=== PATIENT | male | born 1955 | race Hispanic/Latino ===

== ENCOUNTER 2018-02-19 15:13 | Inpatient (IN) | payer BC, OTHER ==
[2018-02-19] MEDS ORDERED: ASPIRIN PO ONE (15:59)
[2018-02-19] MEDS ORDERED: NACL 0.9% 1000 ML 1,000 ML IV ONE (15:59)
[2018-02-19 16:07] LABS: Basophils % (Auto) 0.4 % (0.0-1.8); Eosinophils # (Auto) 0.2 K/mm3 (0.0-0.4); Eosinophils % (Auto) 2.1 % (0.0-4.3); Lymphocytes # (Auto) 1.1 K/mm3 (1.2-5.4); Lymphocytes % (Auto) 15.8 % (13.4-35.0); Mean Corpuscular HGB Conc 36 % (32-34); Mean Corpuscular Hemoglobin 33 pg (28-32); Mean Corpuscular Volume 91 fl (84-94); Monocytes # (Auto) 0.6 K/mm3 (0.0-0.8); Monocytes % (Auto) 7.9 % (0.0-7.3); Platelet Count 171 K/mm3 (140-440); Red Blood Count 4.74 M/mm3 (3.65-5.03); Red Cell Distribution Width 13.7 % (13.2-15.2)
[2018-02-19 16:08] LABS: Hematocrit 43.2 % (35.5-45.6); Hemoglobin 15.7 gm/dl (11.8-15.2)
--- NOTE | 2018-02-19 16:16 | Consultation ---
History of Present Illness Consult date: 02/19/18 Requesting physician: RANDY MEEKS Consult reason: chest pain History of present illness: The pt is a 62 YO male with a past medical history significant for CAD s/p PCI of proximal right PDA in 03/2015, HTN, HLP, DM, mild COPD, former tobacco use ( quit 21 years ago). He is followed in our office by Dr. Jorge L Rodriguez. He presented with complaints of progressively worsening chest pain and SOB for 1-2 weeks and syncope this AM. He describes his chest pain as a midsternal, exertional pressure which radiates down his left arm and into his left neck and upper back. The pain is aggravated by exertion and alleviated by rest. The pain is associated with SOB, diaphoresis, nausea, and a few bouts of vomiting. This morning, he was sitting in a tractor at work when he felt dizzy for approx one minute and then lost consciousness. He awoke to his co-workers pulling him out of the tractor. On evaluation, he denies any current chest pain while at rest. He is currently c/o left arm and left hand pain, numbness and tingling. Last LHC done 05/2017 showed EF 50-55%, mid RCA lesion with previously placed stent widely patent, 10% stenosed, distal RCA lesion 40% stenosed, distal Cx lesion located at origin of AV branch immediately distal to origin of OM branch 50% stenosed. Echo done 05/2013 showed EF 55%, mild LVH, abnormal diastolic function. Lexiscan MPI stress test done 08/2016 was negative for ischemia, normal LV systolic performance. Past History Past Medical History: CAD, COPD, diabetes, hypertension, hyperlipidemia Social history: , lives with family, smoking (former). denies: alcohol abuse, prescription drug abuse Medications and Allergies Allergies Allergy/AdvReac Type Severity Reaction Status Date / Time codeine AdvReac Unknown Unverified 05/23/14 14:30 Home Medications Medication Instructions Recorded Confirmed Last Taken Type Atorvastatin [Lipitor] 10 mg PO QHS 05/23/14 05/23/14 05/22/14 22:00 History Clopidogrel Bisulfate [Plavix] 75 mg PO DAILY 05/23/14 05/23/14 05/23/14 10:00 History Fenofibric Acid (Choline) 135 mg PO QDAY 08/05/23/14 05/23/14 10:00 History [Trilipix] Glimepiride [Amaryl] 4 mg PO BID 05/23/14 05/23/14 05/23/14 10:00 History Metoprolol [Lopressor TAB] 25 mg PO BID 05/23/14 05/23/14 05/23/14 10:00 History Olmesartan/Amlodipin/Hcthiazid 1 each PO QDAY 05/23/14 05/23/14 05/23/14 10:00 History [Tribenzor 40-5-12.5 mg] Sitagliptin Phos/Metformin HCl 1 tab PO BID 05/23/14 05/23/14 05/23/14 10:00 History [Janumet XR 50-1,000 mg] Aspirin [Aspirin TAB] 325 mg PO QDAY #30 tablet 05/25/14 Unknown Rx Active Meds: Active Medications Sodium Chloride (Nacl 0.9% 1000 Ml) 1,000 mls @ 999 mls/hr IV ONCE ONE Stop: 02/19/18 16:59 Review of Systems Constitutional: no weight loss, no weight gain Ears, nose, mouth and throat: no ear pain, no nose pain, no sinus pressure, no sinus pain Cardiovascular: chest pain, syncope, lightheadedness, shortness of breath, dyspnea on exertion, high blood pressure, decreased exercise tolerance, no orthopnea, no palpitations, no rapid/irregular heart beat, no edema, no paroxysmal nocturnal dyspnea, no leg edema Respiratory: shortness of breath, dyspnea on exertion, no cough, no congestion, no wheezing, no pain on inspiration Gastrointestinal: nausea, vomiting, no abdominal pain, no diarrhea, no constipation, no change in bowel habits Genitourinary Male: no dysuria, no hematuria, no flank pain, no discharge, no urinary frequency, no urinary hesitancy Musculoskeletal: arm numbness/tingling (LUE) Integumentary: no rash, no pruritis, no redness, no sores, no wounds Neurological: syncope, no head injury, no paralysis, no parathesias, no seizures Psychiatric: no anxiety Endocrine: no cold intolerance, no heat intolerance Hematologic/Lymphatic: no easy bruising, no easy bleeding Allergic/Immunologic: no urticaria, no persistent infections Physical Examination Vital Signs Temp Pulse Resp BP Pulse Ox 97.4 F L 83 18 92/60 98 02/19/18 15:25 02/19/18 15:25 02/19/18 15:25 02/19/18 15:25 02/19/18 15:25 General appearance: no acute distress HEENT: Positive: PERRL, Normocephaly, Mucus Membranes Moist Neck: Positive: neck supple, trachea midline Cardiac: Positive: Reg Rate and Rhythm, S1/S2 Lungs: Positive: Decreased Breath Sounds Neuro: Positive: Grossly Intact, Cranial Nerve 2-12 Intact Abdomen: Positive: Soft. Negative: Tender Skin: Positive: Clear. Negative: Rash, Wound Musculoskeletal: No Fluid Collection, No Pain, Normal Range of Motion Extremities: Absent: edema Results 02/19/18 15:39 02/19/18 15:39 - Imaging and Cardiology Echo: report reviewed (05/2013 showed EF 55%, mild LVH, abnormal diastolic function. ) Cardiac cath: report reviewed ( 05/2017 showed EF 50-55%, mid RCA lesion with previously placed stent widely patent, 10% stenosed, distal RCA lesion 40% stenosed, distal Cx lesion located at origin of AV branch immediately distal to origin of OM branch 50% stenosed. ) EKG: report reviewed, image reviewed EKG interpretations - Telemetry EKG Rhythm: Sinus Rhythm - EKG Sinus rhythms and dysrhythmias: sinus rhythm Myocardial infarction: septal MS (old age or ind, anterior MS (old age or i Assessment and Plan Assessment: Unstable angina Syncope CAD s/p PCI H/o HTN - currently with borderline hypotension HLP DM Mild COPD H/o tobacco use - quit 21 years ago Plan: Await labwork. Initiate ASA 325 and lipitor 80mg. Cont home lopressor. Consider addition of nitrates if BPs allow. Initiate heparin gtt. Hold 4 hours prior to LHC in AM. Obtain echo. Repeat EKG in AM. Plan for coronary angiography in AM pending Tai negative for AMI and pt remains clinically stable overnight. Indications, potential risks and benefits of LHC reviewed with pt and pt's at bedside and they are agreeable to proceed. NPO after MN. The patient has been seen in conjunction with Dr. Etienne who agrees with the assessment and plan of care.
[2018-02-19] MEDS ORDERED: HEPARIN 10,000 UNITS/10 ML IV ONE ×2 (16:23→18:00)
[2018-02-19 16:27] LABS: BUN/Creatinine Ratio 19; Blood Urea Nitrogen 39 mg/dL (9-20); Calcium 9.7 mg/dL (8.4-10.2); Hemolysis Index 55
[2018-02-19] MEDS ORDERED: HumuLIN R IV ONE (16:46)
[2018-02-19] MEDS ORDERED: NORCO 5/325 PO ONE (16:51)
--- NOTE | 2018-02-19 16:54 | XRay Report ---
FINAL REPORT EXAM: XR CHEST 1V AP HISTORY: chest pain TECHNIQUE: upright single view chest PRIORS: None. FINDINGS: Cardiac and mediastinal contours are unremarkable. No focal pulmonary infiltrate is identified. No pleural fluid collection seen. Pulmonary vasculature is unremarkable. IMPRESSION: Negative single-view chest
--- NOTE | 2018-02-19 16:54 | Emergency Department Report ---
HPI - General Chief Complaint: Chest Pain Time Seen by Provider: 02/19/18 15:42 - HPI HPI: Room 8 The patient is a 62-year-old male presenting with a chief complaint of chest pain. The patient states for the past 2-3 days he has had intermittent left sided chest pain described as a dull discomfort. Patient states is also pain in left shoulder and today he had numbness in his left upper extremity. The patient states his chest pain is associated with shortness of breath, nausea/ vomiting and diaphoresis. The patient states it feels similar to his previous cardiac episodes which required cardiac stent placement. The patient states she 's also had intermittent blurred vision from both eyes for the past 1-2 days. Patient states now he only has intermittent blurred vision from the left eye. Location: [See above] Duration: [See above] Quality: [See above] Severity: [See above] Modifying factors: [see above] Context: [see above] Mode of transportation: [not driving] ED Past Medical Hx - Past Medical History Previous Medical History?: Yes Hx Hypertension: Yes Hx Heart Attack/AMI: Yes Hx Diabetes: Yes Hx COPD: Yes - Surgical History Past Surgical History?: Yes Hx Coronary Stent: Yes (x6) Hx Cholecystectomy: Yes - Family History Family history: no significant - Social History Smoking Status: Former Smoker (none 21 years) Substance Use Type: None (denies illicit drug use), Alcohol (occasional) - Medications Home Medications: Home Medications Medication Instructions Recorded Confirmed Last Taken Type Clopidogrel Bisulfate [Plavix] 75 mg PO DAILY 05/23/14 02/19/18 05/23/14 10:00 History Metoprolol [Lopressor TAB] 25 mg PO BID 05/23/14 02/19/18 05/23/14 10:00 History Aspirin [Adult Low Dose Aspirin EC] 81 mg PO DAILY 02/19/18 02/19/18 Unknown History Atorvastatin Calcium [Lipitor] 80 mg PO DAILY 02/19/18 02/19/18 Unknown History Dulaglutide [Trulicity] 1.5 mg SUB-Q QWEEK 02/19/18 02/19/18 02/14/18 History Folic Acid [Folvite] 1 mg PO QDAY 02/19/18 02/19/18 Unknown History Insulin Degludec [Tresiba 16 units SUB-Q QDAY 02/19/18 02/19/18 02/19/18 History Flextouch U-200] Metoclopramide [Reglan] 10 mg PO TIDWM 02/19/18 02/19/18 Unknown History Olmesartan/Amlodipin/Hcthiazid 1 each PO QDAY 02/19/18 02/19/18 Unknown History [Tribenzor 20-5-12.5 mg Tablet] Ranolazine [Ranexa] 1,000 mg PO BID 02/19/18 02/19/18 02/19/18 History Sitagliptin Phosphate [Januvia] 100 mg PO QDAY 02/19/18 02/19/18 Unknown History ED Review of Systems ROS: Stated complaint: CHEST PAIN, LEFT ARM HURTING, DIZZINESS, VOMITING Other details as noted in HPI Constitutional: diaphoresis Eyes: vision change ENT: denies: throat pain Respiratory: shortness of breath Cardiovascular: chest pain Gastrointestinal: nausea, vomiting. denies: abdominal pain Neurological: numbness Physical Exam - Physical Exam Vital Signs: Vital Signs 02/19/18 02/19/18 02/19/18 15:25 15:55 16:00 Temperature 97.4 F L Pulse Rate 83 80 78 Respiratory 18 13 16 Rate Blood Pressure 92/60 129/86 O2 Sat by Pulse 98 100 Oximetry Physical Exam: GENERAL: The patient is well-developed well-nourished male lying on stretcher not appearing to be in acute distress. [] HEENT: Normocephalic. Atraumatic. Extraocular motions are intact. Patient has moist mucous membranes. NECK: Supple. Trachea midline CHEST/LUNGS: Clear to auscultation. There is no respiratory distress noted. HEART/CARDIOVASCULAR: Regular. There is no tachycardia. There is no gallop rub or murmur. 2+ radial pulses bilaterally ABDOMEN: Abdomen is soft, nontender. Patient has normal bowel sounds. There is no abdominal distention. SKIN: There is no rash. There is no edema. There is no diaphoresis. NEURO: The patient is awake, alert, and oriented. The patient is cooperative. The patient has no focal neurologic deficits. The patient has normal speech. Cranial nerves II through XII grossly intact MUSCULOSKELETAL: There is no evidence of acute injury. ED Course Vital Signs 02/19/18 02/19/18 02/19/18 15:25 15:55 16:00 Temperature 97.4 F L Pulse Rate 83 80 78 Respiratory 18 13 16 Rate Blood Pressure 92/60 129/86 O2 Sat by Pulse 98 100 Oximetry ED Medical Decision Making - Lab Data Result diagrams: 02/19/18 15:39 02/19/18 15:39 Laboratory Tests 02/19/18 02/19/18 02/19/18 15:39 15:39 15:39 WBC 7.0 RBC 4.74 Hgb 15.7 H Hct 43.2 MCV 91 MCH 33 H MCHC 36 H RDW 13.7 Plt Count 171 Lymph % (Auto) 15.8 [place] % (Auto) 7.9 H Eos % (Auto) 2.1 Baso % (Auto) 0.4 Lymph # 1.1 L [place] # 0.6 Eos # 0.2 Baso # 0.0 Seg Neutrophils % 73.8 H Seg Neutrophils # 5.2 VBG pH 7.372 Sodium 123 L Potassium 4.9 Chloride 85.8 L Carbon Dioxide 22 Anion Gap 20 BUN 39 H Creatinine 2.1 H Estimated GFR 32 BUN/Creatinine Ratio 19 Glucose 553 H* Calcium 9.7 Troponin T < 0.010 - EKG Data -: EKG Interpreted by Me EKG shows normal: sinus rhythm Rate: normal - EKG Data When compared to previous EKG there are: previous EKG unavailable Interpretation: other (no ischemic changes seen) - Radiology Data Radiology results: image reviewed (chest x-ray) interpreted by me: Chest x-ray-no focal infiltrates, no pneumothorax - Differential Diagnosis ACS, GERD, pericarditis Critical care attestation.: If time is entered above; I have spent that time in minutes in the direct care of this critically ill patient, excluding procedure time. ED Disposition Clinical Impression: Chest pain, Acute renal insufficiency Disposition: OP ADMIT IP TO THIS HOSP Is pt being admited?: Yes Does the pt Need Aspirin: No Condition: Fair Instructions: Chest Pain (ED) Time of Disposition: 16:59 (Hospitalist notified (Dr Alvarado))
--- NOTE | 2018-02-19 16:57 | History and Physical Report ---
History of Present Illness Chief complaint: My chest hurts History of present illness: 62 YO Male with CAD S/P PCI, HTN, HLD, DM, COPD, presents to ED for evaluation. Pt states that he has experienced pain in his chest for the past 1 week, with worsening symptoms over the past 3 days. Pt states that pain is 7/10, midsternal , worse with exertion, improved with rest, radiates to Left arm,neck, and upper back. Pain is associated with diaphoresis,nausea and multiple episodes of vomiting. Pt also acknwledges an episode of syncope while at work. Pt states that he lost consciousness while sitting on a tractor at work, and awoke to his co-workers pulling him out of the tractor. Pt seen and evaluated in ED and found to have ACS. Cardiology consulted in ED. Pt started on a heparin drip and admitted to telemetry. Past History Past Medical History: CAD, COPD, diabetes, hypertension, hyperlipidemia Social history: , lives with family, smoking (former). denies: alcohol abuse, prescription drug abuse Family history: CAD, hypertension Medications and Allergies Allergies Allergy/AdvReac Type Severity Reaction Status Date / Time codeine AdvReac Unknown Verified 02/19/18 17:36 Home Medications Medication Instructions Recorded Confirmed Last Taken Type Clopidogrel Bisulfate [Plavix] 75 mg PO DAILY 05/23/14 02/19/18 05/23/14 10:00 History Metoprolol [Lopressor TAB] 25 mg PO BID 05/23/14 02/19/18 05/23/14 10:00 History Aspirin [Adult Low Dose Aspirin EC] 81 mg PO DAILY 02/19/18 02/19/18 Unknown History Atorvastatin Calcium [Lipitor] 80 mg PO DAILY 02/19/18 02/19/18 Unknown History Dulaglutide [Trulicity] 1.5 mg SUB-Q QWEEK 02/19/18 02/19/18 02/14/18 History Folic Acid [Folvite] 1 mg PO QDAY 02/19/18 02/19/18 Unknown History Insulin Degludec [Tresiba 16 units SUB-Q QDAY 02/19/18 02/19/18 02/19/18 History Flextouch U-200] Metoclopramide [Reglan] 10 mg PO TIDWM 02/19/18 02/19/18 Unknown History Olmesartan/Amlodipin/Hcthiazid 1 each PO QDAY 02/19/18 02/19/18 Unknown History [Tribenzor 20-5-12.5 mg Tablet] Ranolazine [Ranexa] 1,000 mg PO BID 02/19/18 02/19/18 02/19/18 History Sitagliptin Phosphate [Januvia] 100 mg PO QDAY 02/19/18 02/19/18 Unknown History Active Meds: Active Medications Aspirin (Aspirin) 325 mg PO QDAY DIVYA Atorvastatin Calcium (Lipitor) 80 mg PO QHS DIVYA Sodium Chloride (Nacl 0.9% 1000 Ml) 1,000 mls @ 999 mls/hr IV ONCE ONE Stop: 02/19/18 16:59 Last Admin: 02/19/18 16:25 Dose: 999 mls/hr Sodium Chloride (Nacl 0.9% 500 Ml) 500 mls @ 50 mls/hr IV DIRECT DIVYA Stop: 02/20/18 02:59 Heparin Sodium/Sodium Chloride (Heparin/ 0.45% Nacl-25,000 Unit/500 Ml) 25,000 unit in 500 mls @ 20 mls/hr IV TITRATE DIVYA; Protocol Stop: 02/20/18 04:00 Metoprolol Tartrate (Lopressor) 25 mg PO BID [facility] Review of Systems Constitutional: no weight loss, no weight gain, no fever, no chills Ears, nose, mouth and throat: no ear pain, no ear discharge, no tinnitis, no decreased hearing, no nose pain, no nasal congestion, no nasal discharge Cardiovascular: chest pain, syncope, shortness of breath, no orthopnea, no palpitations Respiratory: no cough, no cough with sputum, no excessive sputum, no hemoptysis Gastrointestinal: nausea, vomiting, no diarrhea, no constipation, no change in bowel habits, no hematemesis Genitourinary Male: no hematuria, no flank pain, no discharge, no urinary frequency, no urinary hesitancy Rectal: no pain, no incontinence, no bleeding Musculoskeletal: no neck stiffness, no neck pain, no shooting arm pain, no arm numbness/tingling, no low back pain, no shooting leg pain, no leg numbness/ tingling Integumentary: no rash, no pruritis, no redness, no sores, no wounds Neurological: no head injury, no transient paralysis, no paralysis, no weakness , no parathesias, no numbness, no tingling Psychiatric: no anxiety, no memory loss, no change in sleep habits, no sleep disturbances, no insomnia, no hypersomnia, no change in appetite, no change in libido Endocrine: no cold intolerance, no heat intolerance, no polyphagia, no excessive thirst, no polydipsia, no polyuria, no nocturia, no excessive sweating , no flushing Hematologic/Lymphatic: no easy bruising, no easy bleeding, no lymphadenopathy, no lymphedema Allergic/Immunologic: no urticaria, no allergic rhinitis, no wheezing, no persistent infections, no anaphylaxis, no angioedema Exam - Constitutional Vitals: Temp Pulse Resp BP Pulse Ox 97.4 F L 78 16 129/86 100 02/19/18 15:25 02/19/18 16:00 02/19/18 16:00 02/19/18 16:00 02/19/18 16:00 General appearance: Present: mild distress - EENT Eyes: Present: PERRL ENT: hearing intact, clear oral mucosa - Neck Neck: Present: supple, normal ROM - Respiratory Respiratory effort: normal Respiratory: bilateral: CTA - Cardiovascular Heart Sounds: Present: S1 & S2. Absent: rub, click - Extremities Extremities: pulses symmetrical, No edema Peripheral Pulses: within normal limits - Abdominal General gastrointestinal: Present: soft, non-tender, non-distended, normal bowel sounds Male genitourinary: Present: normal - Integumentary Integumentary: Present: clear, warm, dry - Musculoskeletal Musculoskeletal: gait normal, strength equal bilaterally - Psychiatric Psychiatric: appropriate mood/affect, intact judgment & insight - Neurologic Neurologic: CNII-XII intact, moves all extremities Results - Labs CBC & Chem 7: 02/19/18 15:39 02/19/18 15:39 Labs: Abnormal lab results 02/19/18 02/19/18 Range/Units 15:39 15:39 Hgb 15.7 H (11.8-15.2) gm/dl MCH 33 H (28-32) pg MCHC 36 H (32-34) % [place] % (Auto) 7.9 H (0.0-7.3) % Lymph # 1.1 L (1.2-5.4) K/mm3 Seg Neutrophils % 73.8 H (40.0-70.0) % Sodium 123 L (137-145) mmol/L Chloride 85.8 L (98-107) mmol/L BUN 39 H (9-20) mg/dL Creatinine 2.1 H (0.8-1.5) mg/dL Glucose 553 H* (75-100) mg/dL Assessment and Plan - Patient Problems (1) ACS (acute coronary syndrome) Current Visit: Yes Status: Acute Plan to address problem: Admit to telemetry, Serial cardiac enzymes, ekg, Heparin Drip, cardiology consulted in ED. (2) ARF (acute renal failure) Current Visit: Yes Status: Acute Qualifiers: Acute renal failure type: with acute tubular necrosis Qualified Code(s): N17.0 - Acute kidney failure with tubular necrosis Plan to address problem: IVF resuscitation, monitor uop q shift, monitor serum creatnine, (3) CAD (coronary artery disease) Current Visit: No Status: Chronic Qualifiers: Associated angina: with unstable angina Plan to address problem: Low cholesterol diet, antiplatelet therapy, risk factor reduction (4) Diabetes Current Visit: No Status: Chronic Plan to address problem: ADA diet, insulin, accu check (5) HLD (hyperlipidemia) Current Visit: No Status: Chronic Qualifiers: Hyperlipidemia type: mixed hyperlipidemia Qualified Code(s): E78.2 - Mixed hyperlipidemia Plan to address problem: statin therapy, low cholesterol diet (6) HTN (hypertension) Current Visit: No Status: Chronic Qualifiers: Hypertension type: essential hypertension Qualified Code(s): I10 - Essential (primary) hypertension Plan to address problem: Monitor bp q shift, resume prehospital medication. (7) DVT prophylaxis Current Visit: Yes Status: Acute Plan to address problem: scd to ble while in bed
[2018-02-19 16:58] LABS: INR 1.05 (0.87-1.13)
[2018-02-19 16:59] LABS: Partial Thromboplastin Time 25.8 Sec. (24.2-36.6)
[2018-02-19] MEDS ORDERED: NITROSTAT SL PRN (16:59)
[2018-02-19] MEDS ORDERED: ZOFRAN IV PRN (16:59)
[2018-02-19] MEDS ORDERED: PROVENTIL IH PRN (16:59)
[2018-02-19] MEDS ORDERED: MORPHINE IV PRN (16:59)
[2018-02-19] MEDS ORDERED: TYLENOL PO PRN (16:59)
[2018-02-19] MEDS ORDERED: SODIUM CHLORIDE FLUSH SYRINGE 10 ML IV PRN ×2 (16:59)
[2018-02-19] MEDS ORDERED: NACL 0.9% 500 ML 500 ML IV SCH (17:00)
[2018-02-19] MEDS ORDERED: HEPARIN/ 0.45% NACL-25,000 UNIT/500 ML 25,000 UNIT/500 ML BAG IV SCH (17:00)
[2018-02-19] MEDS ORDERED: D50W (25GM) Syringe IV PRN (17:04)
[2018-02-19] MEDS ORDERED: BABY ASPIRIN PO STA (17:06)
[2018-02-19] MEDS ORDERED: NACL 0.45% 1000 ML 1,000 ML IV SCH (18:00)
[2018-02-19] MEDS: NACL 0.9% 1000 ML 1,000 ML IV SCH (18:40)
[2018-02-19] MEDS: LOPRESSOR PO SCH (22:00)
[2018-02-19] MEDS ORDERED: PEPCID PO SCH (22:00)
[2018-02-19] MEDS: HumaLOG SUB-Q SCH (23:33)
[2018-02-19] MEDS: PEPCID PO SCH (23:49)
[2018-02-19] MEDS: SODIUM CHLORIDE FLUSH SYRINGE 10 ML IV SCH (23:55)
[2018-02-20] MEDS: HumaLOG SUB-Q SCH ×4 (00:55→18:01)
[2018-02-20 02:07] LABS: Bilirubin,Urine NEG (Negative); Blood,Urine NEG (Negative); Color,Urine Yellow (Yellow); Hyaline Casts,Urine 1 /LPF; Protein,Urine <15 mg/dL mg/dL (Negative); Urobilinogen,Urine < 2.0 mg/dL (<2.0); WBC,Urine < 1.0 /HPF (0.0-6.0)
[2018-02-20 05:39] LABS: Calcium 8.6 mg/dL (8.4-10.2)
[2018-02-20 05:51] LABS: INR 1.11 (0.87-1.13)
[2018-02-20] MEDS ORDERED: NACL 0.9% 500 ML 500 ML IV ONE (06:00)
[2018-02-20 06:08] LABS: Partial Thromboplastin Time 66.6 Sec. (24.2-36.6)
[2018-02-20] MEDS: REGLAN PO SCH ×3 (09:15→18:01)
[2018-02-20] MEDS: NACL 0.9% 1000 ML 1,000 ML IV SCH ×3 (09:48→14:22)
[2018-02-20] MEDS: SODIUM CHLORIDE FLUSH SYRINGE 10 ML IV SCH ×2 (09:49→21:43)
[2018-02-20] MEDS ORDERED: INSULIN DEGLUDEC 16 UNIT SUB-Q SCH (10:00)
[2018-02-20] MEDS ORDERED: AMLODIPIN PO SCH (10:00)
[2018-02-20] MEDS ORDERED: HCTHIAZID PO SCH (10:00)
[2018-02-20] MEDS ORDERED: COZAAR PO SCH (10:00)
[2018-02-20] MEDS ORDERED: OLMESARTAN PO SCH (10:00)
--- NOTE | 2018-02-20 10:41 | Progress Note ---
Assessment and Plan Assessment: Chest pain - currently resolved Syncope CAD s/p PCI H/o HTN - currently with borderline hypotension HLP DM with hyperglycemia Dehydration ITZEL Hyponatremia Hypokalemia Mild COPD H/o tobacco use - quit 21 years ago Plan: Renal insufficiency precludes coronary angiography at this time. Will continue with medical management given current resolution of chest pain, Tai negative for AMI, ECG with NAF. D/c heparin gtt and resume home plavix. Cont ASA, lipitor, lopressor. Initiate SQ heparin for DVT prophylaxis. Obtain echo. IVF per primary and monitor renal indices closely. Hold home losartan. Pt for renal US today. Consider nephrology consultation if renal indices worsen. Replete K+. Assessment and plan reviewed with pt and pt's family at bedside. The patient has been seen in conjunction with Dr. Jorge L Rodriguez who agrees with the assessment and plan of care. Subjective Date of service: 02/20/18 Principal diagnosis: cp Interval history: pt resting comfortably in bed, reports resolution of chest pain, still c/o left arm pain, numbness and tingling. family at bedside. Objective Last Vital Signs Temp 97.5 F L 02/20/18 07:55 Pulse 78 02/20/18 07:55 Resp 20 02/20/18 07:55 BP 121/80 02/20/18 07:55 Pulse Ox 99 02/20/18 07:55 - Physical Examination General: No Apparent Distress HEENT: Positive: PERRL, Normocephaly, Mucus Membranes Moist Neck: Positive: neck supple, trachea midline Cardiac: Positive: Reg Rate and Rhythm, S1/S2 Lungs: Positive: clear to auscultation Neuro: Positive: Grossly Intact, Cranial Nerve 2-12 Intact Abdomen: Positive: Soft. Negative: Tender Skin: Positive: Clear. Negative: Rash, Wound Musculoskeletal: No Fluid Collection, No Pain, Normal Range of Motion Extremities: Absent: edema - Labs and Meds Coagulation 02/19/18 02/20/18 Range/Units 16:30 04:50 PT 14.3 14.9 (12.2-14.9) Sec. INR 1.05 1.11 (0.87-1.13) APTT 25.8 66.6 H* (24.2-36.6) Sec. CBC 02/19/18 Range/Units 15:39 WBC 7.0 (4.5-11.0) K/mm3 RBC 4.74 (3.65-5.03) M/mm3 Hgb 15.7 H (11.8-15.2) gm/dl Hct 43.2 (35.5-45.6) % Plt Count 171 (140-440) K/mm3 Lymph # 1.1 L (1.2-5.4) K/mm3 [place] # 0.6 (0.0-0.8) K/mm3 Eos # 0.2 (0.0-0.4) K/mm3 Baso # 0.0 (0.0-0.1) K/mm3 Comprehensive Metabolic Panel 02/19/18 02/20/18 Range/Units 15:39 04:50 Sodium 123 L 136 L D (137-145) mmol/L Potassium 4.9 3.5 L D (3.6-5.0) mmol/L Chloride 85.8 L 98.7 (98-107) mmol/L Carbon Dioxide 22 22 (22-30) mmol/L BUN 39 H 28 H (9-20) mg/dL Creatinine 2.1 H 1.8 H (0.8-1.5) mg/dL Glucose 553 H* 143 H (75-100) mg/dL Calcium 9.7 8.6 (8.4-10.2) mg/dL - Imaging and Cardiology EKG: report reviewed, image reviewed Echo: report reviewed (05/2013 showed EF 55%, mild LVH, abnormal diastolic function. ) Cardiac cath: report reviewed ( 05/2017 showed EF 50-55%, mid RCA lesion with previously placed stent widely patent, 10% stenosed, distal RCA lesion 40% stenosed, distal Cx lesion located at origin of AV branch immediately distal to origin of OM branch 50% stenosed. ) - Telemetry EKG Rhythm: Sinus Rhythm - EKG Sinus rhythms and dysrhythmias: sinus rhythm Myocardial infarction: septal NV (old age or ind, anterior NV (old age or i
[2018-02-20] MEDS ORDERED: K-DUR PO NR (11:30)
--- NOTE | 2018-02-20 13:44 | Ultrasound Report ---
Renal sonogram: History: CKD. Findings: Right kidney 11.2 x 5.3 x 5.8 cm. Cortical thickness is 1.6 cm. Parapelvic cyst measures 3.9 x 3.1 x 2.7 cm. Left kidney 10.2 x 5.7 x 6.1 cm. Cortical thickness is 1.4 cm. No mass. Impression: Right parapelvic cyst.
[2018-02-20] MEDS: LOPRESSOR PO SCH ×2 (14:18→21:41)
[2018-02-20] MEDS: HCTZ PO SCH (14:18)
[2018-02-20] MEDS: FOLVITE PO SCH (14:18)
[2018-02-20] MEDS: NORVASC PO SCH (14:18)
[2018-02-20] MEDS: PLAVIX PO SCH (14:18)
[2018-02-20] MEDS: HEPARIN SUB-Q SCH ×2 (14:19→21:42)
[2018-02-20] MEDS: ASPIRIN PO SCH (14:19)
[2018-02-20] MEDS: LANTUS SUB-Q SCH (14:19)
[2018-02-20] MEDS: PEPCID PO SCH (14:19)
--- NOTE | 2018-02-20 17:54 | Progress Note ---
Assessment and Plan /Atypical chest pain Admit to telemetry, Serial cardiac enzymes, ekg, Heparin Drip, cardiology consulted in ED. 2d echo showed preserved EF /Syncope - will get CT head, carotid doppler there is /Acute renal failure, likely vasomotor nephropathy Cannot rule out underlying security IVF resuscitation, monitor uop q shift, monitor serum creatnine, /CAD (coronary artery disease) Status post PCI of proximal right PDA in 03/2015 Low cholesterol diet, antiplatelet therapy, risk factor reduction / Diabetes type II, uncontrolled ADA diet, insulin, accu check / HLD (hyperlipidemia) statin therapy, low cholesterol diet /HTN (hypertension) Monitor bp q shift, resume prehospital medication. /DVT prophylaxis scd to ble while in bed Brief History: The pt is a 62 YO male with a past medical history significant for CAD s/p PCI of proximal right PDA in 03/2015, HTN, HLP, DM, mild COPD, former tobacco use ( quit 21 years ago) presented with complaints of progressively worsening chest pain and SOB for 1-2 weeks and syncope this AM. He was sitting in a tractor at work when he felt dizzy for approx one minute and then lost consciousness. He awoke to his co-workers pulling him out of the tractor. Radiological data: CXR: no infiltrates Hospitalist Physical exam: GENERAL: well-developed and well-nourished WM lying on bed appeared to be in no discomfort. HEENT: Normocephalic. Atraumatic. No conjunctival congestion or icterus. Patient has moist mucous membranes. NECK: Supple. Trachea midline. CHEST/LUNGS: Clear to auscultated bilaterally, breathing nonlabored. No wheezes crackles or rhonchi. HEART/CARDIOVASCULAR: Regular in rate and rhythm. S1 and S2 positive. ABDOMEN: Abdomen is soft, nontender. Patient has normal bowel sounds. SKIN: There is no rash. Warm and dry. NEURO: No focal motor deficit. Follows command. MUSCULOSKELETAL: No joint effusion or tenderness. EXTRIMITY: No edema, no cyanosis or clubbing. PSYCH: Cooperative. Subjective Date of service: 02/20/18 Principal diagnosis: cp Objective - Constitutional Vitals: Vital Signs - 12hr 02/20/18 02/20/18 02/20/18 07:55 10:00 15:39 Temperature 97.5 F L 97.6 F Pulse Rate 78 78 75 Respiratory 20 20 Rate Blood Pressure 121/80 107/75 O2 Sat by Pulse 99 98 Oximetry 02/20/18 15:55 Temperature Pulse Rate Respiratory Rate Blood Pressure O2 Sat by Pulse 100 Oximetry - Labs CBC & Chem 7: 02/21/18 05:33 02/21/18 05:33 Labs: Abnormal lab results 02/19/18 02/19/18 02/20/18 Range/Units 15:20 18:43 00:41 APTT (24.2-36.6) Sec. Sodium (137-145) mmol/L Potassium (3.6-5.0) mmol/L BUN (9-20) mg/dL Creatinine (0.8-1.5) mg/dL Glucose (75-100) mg/dL POC Glucose > 500 H 234 H 204 H (70-105) Hemoglobin A1c (4-6) % 02/20/18 02/20/18 02/20/18 Range/Units 04:50 04:50 05:52 APTT 66.6 H* (24.2-36.6) Sec. Sodium 136 L D (137-145) mmol/L Potassium 3.5 L D (3.6-5.0) mmol/L BUN 28 H (9-20) mg/dL Creatinine 1.8 H (0.8-1.5) mg/dL Glucose 143 H (75-100) mg/dL POC Glucose 158 H (70-105) Hemoglobin A1c (4-6) % 02/20/18 02/20/18 02/20/18 Range/Units 07:10 14:21 17:42 APTT (24.2-36.6) Sec. Sodium (137-145) mmol/L Potassium (3.6-5.0) mmol/L BUN (9-20) mg/dL Creatinine (0.8-1.5) mg/dL Glucose (75-100) mg/dL POC Glucose 143 H 296 H 209 H (70-105) Hemoglobin A1c (4-6) % 02/20/18 Range/Units Unknown APTT (24.2-36.6) Sec. Sodium (137-145) mmol/L Potassium (3.6-5.0) mmol/L BUN (9-20) mg/dL Creatinine (0.8-1.5) mg/dL Glucose (75-100) mg/dL POC Glucose (70-105) Hemoglobin A1c 13.5 H (4-6) %
[2018-02-21] MEDS: HumaLOG SUB-Q SCH ×4 (02:02→20:45)
[2018-02-21] MEDS: HEPARIN SUB-Q SCH ×3 (05:14→22:00)
[2018-02-21] MEDS: NACL 0.9% 1000 ML 1,000 ML IV SCH ×3 (05:14→22:02)
[2018-02-21 06:06] LABS: Calcium 8.4 mg/dL (8.4-10.2)
[2018-02-21 06:26] LABS: Hematocrit 38.1 % (35.5-45.6); Hemoglobin 13.4 gm/dl (11.8-15.2)
[2018-02-21] MEDS: PEPCID PO SCH (09:46)
[2018-02-21] MEDS: FOLVITE PO SCH (09:46)
[2018-02-21] MEDS: PLAVIX PO SCH (09:46)
[2018-02-21] MEDS: ASPIRIN PO SCH (09:46)
[2018-02-21] MEDS: HCTZ PO SCH (09:46)
[2018-02-21] MEDS: SODIUM CHLORIDE FLUSH SYRINGE 10 ML IV SCH ×2 (09:47→22:02)
[2018-02-21] MEDS: REGLAN PO SCH ×4 (09:47→17:36)
[2018-02-21] MEDS: NORVASC PO SCH (09:48)
[2018-02-21] MEDS: LOPRESSOR PO SCH ×2 (09:49→22:00)
--- NOTE | 2018-02-21 09:54 | Progress Note ---
Assessment and Plan 62yo WM: Chest pain - currently resolved Syncope CAD s/p PCI H/o HTN - currently with borderline hypotension HLP DM with hyperglycemia Dehydration ITZEL Hyponatremia Hypokalemia Mild COPD H/o tobacco use - quit 21 years ago Rec: clinically improving cr 1.5 today will watch one more day - if no further cp, consider am dc. tte reviewed. Subjective Date of service: 02/21/18 Principal diagnosis: cp Interval history: feeling better Objective Vital Signs Temp Pulse Resp BP Pulse Ox 02/21/18 09:49 78 110/74 02/21/18 09:48 78 110/74 02/21/18 08:23 97.4 F L 72 16 108/75 98 02/21/18 04:59 97.5 F L 73 20 113/77 98 02/21/18 01:50 96 02/21/18 00:04 97.5 F L 70 20 102/66 97 02/20/18 22:00 72 02/20/18 21:23 18 02/20/18 20:51 97.4 F L 75 20 109/74 99 02/20/18 15:55 100 02/20/18 15:39 97.6 F 75 20 107/75 98 02/20/18 10:00 78 - Physical Examination General: No Apparent Distress HEENT: Positive: PERRL, Normocephaly, Mucus Membranes Moist Neck: Positive: neck supple, trachea midline Neuro: Positive: Grossly Intact, Cranial Nerve 2-12 Intact Abdomen: Positive: Soft. Negative: Tender Skin: Positive: Clear. Negative: Rash, Wound Musculoskeletal: No Fluid Collection, No Pain, Normal Range of Motion Extremities: Absent: edema - Labs and Meds CBC 02/21/18 Range/Units 05:33 Hgb 13.4 (11.8-15.2) gm/dl Hct 38.1 (35.5-45.6) % Plt Count 141 (140-440) K/mm3 Comprehensive Metabolic Panel 02/21/18 Range/Units 05:33 Sodium 141 (137-145) mmol/L Potassium 4.1 (3.6-5.0) mmol/L Chloride 106.0 (98-107) mmol/L Carbon Dioxide 22 (22-30) mmol/L BUN 17 (9-20) mg/dL Creatinine 1.5 (0.8-1.5) mg/dL Glucose 132 H (75-100) mg/dL Calcium 8.4 (8.4-10.2) mg/dL - Imaging and Cardiology EKG: report reviewed, image reviewed Echo: report reviewed (05/2013 showed EF 55%, mild LVH, abnormal diastolic function. ) Cardiac cath: report reviewed ( 05/2017 showed EF 50-55%, mid RCA lesion with previously placed stent widely patent, 10% stenosed, distal RCA lesion 40% stenosed, distal Cx lesion located at origin of AV branch immediately distal to origin of OM branch 50% stenosed. ) - EKG Sinus rhythms and dysrhythmias: sinus rhythm Myocardial infarction: septal MA (old age or ind, anterior MA (old age or i
[2018-02-21] MEDS: LANTUS SUB-Q SCH (09:55)
--- NOTE | 2018-02-21 15:43 | Cat Scan Report ---
FINAL REPORT EXAM: CT HEAD/BRAIN WO CON HISTORY: syncope TECHNIQUE: CT of the Head without IV contrast. PRIORS: None currently available. FINDINGS: There is no evidence for acute ischemia. There is no hemorrhage. There is no midline shift. There is no hydrocephalus. There is no mass. Age appropriate denise-white matter attenuation is noted. There is no calvarial fracture. The temporal bones demonstrate aerated mastoid air cells. The middle ears appear unremarkable. Mild mucosal thickening in both ethmoid sinuses. Globes are intact. IMPRESSION: No acute intracranial findings.
--- NOTE | 2018-02-21 19:14 | Progress Note ---
Assessment and Plan /Atypical chest pain, ? GERD Admit to telemetry, monitored Serial cardiac enzymes, ekg, Placed on Heparin Drip for possible ACS, cardiology consulted in ED. 2d echo showed preserved EF Cardiology recommended for consevative Mx now if chest pain does not recurs, off heparin drip since yesterday cont PPI /Syncope - will get CT head, carotid doppler /Acute renal failure, likely vasomotor nephropathy Cannot rule out underlying CKD IVF resuscitation, monitor uop q shift, monitor serum creatnine, Improved to 1.5 today, renal US showed no abnormality /CAD (coronary artery disease) Status post PCI of proximal right PDA in 03/2015 Low cholesterol diet, antiplatelet therapy, risk factor reduction / Diabetes type II, uncontrolled ADA diet, insulin, accu check / HLD (hyperlipidemia) statin therapy, low cholesterol diet /HTN (hypertension) Monitor bp q shift, resume prehospital medication. /DVT prophylaxis scd to ble while in bed Brief History: The pt is a 62 YO male with a past medical history significant for CAD s/p PCI of proximal right PDA in 03/2015, HTN, HLP, DM, mild COPD, former tobacco use ( quit 21 years ago) presented with complaints of progressively worsening chest pain and SOB for 1-2 weeks and syncope this AM. He was sitting in a tractor at work when he felt dizzy for approx one minute and then lost consciousness. He awoke to his co-workers pulling him out of the tractor. Radiological data: CXR: no infiltrates Hospitalist Physical exam: GENERAL: well-developed and well-nourished WM lying on bed appeared to be in no discomfort. HEENT: Normocephalic. Atraumatic. No conjunctival congestion or icterus. Patient has moist mucous membranes. NECK: Supple. Trachea midline. CHEST/LUNGS: Clear to auscultated bilaterally, breathing nonlabored. No wheezes crackles or rhonchi. HEART/CARDIOVASCULAR: Regular in rate and rhythm. S1 and S2 positive. ABDOMEN: Abdomen is soft, nontender. Patient has normal bowel sounds. SKIN: There is no rash. Warm and dry. NEURO: No focal motor deficit. Follows command. MUSCULOSKELETAL: No joint effusion or tenderness. EXTRIMITY: No edema, no cyanosis or clubbing. PSYCH: Cooperative. Subjective Date of service: 02/21/18 Principal diagnosis: cp Interval history: Pt seen and examined denies any chest pain, discussed the case with Dr. Rodriguez Objective - Constitutional Vitals: Vital Signs - 12hr 02/21/18 02/21/18 02/21/18 08:23 09:48 09:49 Temperature 97.4 F L Pulse Rate 72 78 78 Respiratory 16 Rate Respiratory Rate [Chest] Blood Pressure 108/75 110/74 110/74 Blood Pressure [Left] O2 Sat by Pulse 98 Oximetry 02/21/18 02/21/18 10:00 10:55 Temperature 97.4 F L Pulse Rate 78 73 Respiratory 20 16 Rate Respiratory 20 Rate [Chest] Blood Pressure Blood Pressure 108/73 [Left] O2 Sat by Pulse 98 Oximetry - Labs CBC & Chem 7: 02/21/18 05:33 02/21/18 05:33 Labs: Abnormal lab results 02/21/18 02/21/18 02/21/18 Range/Units 05:15 05:33 12:42 Glucose 132 H (75-100) mg/dL POC Glucose 135 H 203 H (70-105) Magnesium 1.60 L (1.7-2.3) mg/dL 02/21/18 Range/Units 18:15 Glucose (75-100) mg/dL POC Glucose 157 H (70-105) Magnesium (1.7-2.3) mg/dL
[2018-02-22] MEDS: HumaLOG SUB-Q SCH ×3 (00:42→12:28)
[2018-02-22] MEDS: HEPARIN SUB-Q SCH ×2 (05:45→13:57)
[2018-02-22] MEDS: NACL 0.9% 1000 ML 1,000 ML IV SCH ×2 (05:45→14:03)
[2018-02-22] MEDS: REGLAN PO SCH ×2 (08:42→12:28)
[2018-02-22] MEDS: PEPCID PO SCH (09:52)
[2018-02-22] MEDS: ASPIRIN PO SCH (09:52)
[2018-02-22] MEDS: PLAVIX PO SCH (09:52)
[2018-02-22] MEDS: FOLVITE PO SCH (09:52)
[2018-02-22] MEDS: NORVASC PO SCH (09:53)
[2018-02-22] MEDS: LOPRESSOR PO SCH (09:53)
[2018-02-22] MEDS: LANTUS SUB-Q SCH (09:54)
[2018-02-22] MEDS: HCTZ PO SCH (09:54)
--- NOTE | 2018-02-22 09:54 | Progress Note ---
Assessment and Plan 62yo WM: Chest pain - currently resolved Syncope CAD s/p PCI H/o HTN - currently with borderline hypotension HLP DM with hyperglycemia Dehydration ITZEL Hyponatremia Hypokalemia Mild COPD H/o tobacco use - quit 21 years ago Rec: clinically vastly improved may go home Subjective Date of service: 02/22/18 Principal diagnosis: cp Interval history: feeling better Objective Vital Signs Temp Pulse Resp Resp BP BP Pulse Ox 02/22/18 09:39 97.9 F 82 18 106/68 98 02/22/18 08:45 16 02/22/18 05:27 97.6 F 70 20 115/76 99 02/22/18 00:52 97.5 F L 66 20 122/80 99 02/21/18 22:00 73 18 02/21/18 20:38 97.6 F 70 20 131/81 100 02/21/18 12:41 97.3 F L 74 18 126/77 99 02/21/18 10:55 97.4 F L 73 16 108/73 98 02/21/18 10:00 78 20 20 - Physical Examination General: No Apparent Distress HEENT: Positive: PERRL, Normocephaly, Mucus Membranes Moist Neck: Positive: neck supple, trachea midline Neuro: Positive: Grossly Intact, Cranial Nerve 2-12 Intact Abdomen: Positive: Soft. Negative: Tender Skin: Positive: Clear. Negative: Rash, Wound Musculoskeletal: No Fluid Collection, No Pain, Normal Range of Motion Extremities: Absent: edema - Imaging and Cardiology EKG: report reviewed, image reviewed Echo: report reviewed (05/2013 showed EF 55%, mild LVH, abnormal diastolic function. ) Cardiac cath: report reviewed ( 05/2017 showed EF 50-55%, mid RCA lesion with previously placed stent widely patent, 10% stenosed, distal RCA lesion 40% stenosed, distal Cx lesion located at origin of AV branch immediately distal to origin of OM branch 50% stenosed. ) - EKG Sinus rhythms and dysrhythmias: sinus rhythm Myocardial infarction: septal [place] (old age or ind, anterior [place] (old age or i
[2018-02-22] MEDS: SODIUM CHLORIDE FLUSH SYRINGE 10 ML IV SCH (10:15)
[2018-02-22 12:17] VITALS: BP 117/78
[2018-02-22 12:36] LABS: BUN/Creatinine Ratio 11; Blood Urea Nitrogen 12 mg/dL (9-20); Calcium 8.5 mg/dL (8.4-10.2); Hemolysis Index 39
--- NOTE | 2018-02-22 14:51 | Discharge Summary ---
Providers - Providers Date of Admission: 02/19/18 16:59 Date of discharge: 02/22/18 Attending physician: BETTY FELIX 02/20/18 10:40 Consult to Dietitian/Nutrition [CONS] Routine Physician Instructions: Reason For Exam: Reason for Consult: diabetic diet education Primary care physician: [employer] Hospitalization Condition: Fair Hospital course: Brief History: The pt is a 62 YO male with a past medical history significant for CAD s/p PCI of proximal right PDA in 03/2015, HTN, HLP, DM, mild COPD, former tobacco use ( quit 21 years ago) presented with complaints of progressively worsening chest pain and SOB for 1-2 weeks and syncope this AM. He was sitting in a tractor at work when he felt dizzy for approx one minute and then lost consciousness. He awoke to his co-workers pulling him out of the tractor. Discahrge diagnosis and management: /Atypical chest pain, ? GERD Admit to telemetry, monitored Serial cardiac enzymes, ekg, Placed on Heparin Drip for possible ACS, cardiology consulted in ED. 2d echo showed preserved EF Cardiology recommended for consevative Mx now if chest pain does not recurs, off heparin drip since yesterday cont PPI /Syncope, likely vasovagal from dehydration and hyperglycemia - BG was 553 and cr 2.1 on admission - normal CT head, carotid doppler /Acute renal failure, likely vasomotor nephropathy ruled out underlying CKD placed IVF resuscitation, monitor uop q shift, monitored serum creatnine, Improved to 1.1 today, renal US showed no abnormality /CAD (coronary artery disease) Status post PCI of proximal right PDA in 03/2015 Low cholesterol diet, antiplatelet therapy, risk factor reduction / Diabetes type II, uncontrolled with hyperglycemia BG was 553 Placed on ADA diet, insulin, accu check counselled for better glycemic control A1c 13.5 / HLD (hyperlipidemia) Cont statin therapy, low cholesterol diet /HTN (hypertension) Monitored bp q shift, resume prehospital medication. /DVT prophylaxis scd to ble while in bed Radiological data: CXR: no infiltrates Hospitalist Physical exam: GENERAL: well-developed and well-nourished WM lying on bed appeared to be in no discomfort. HEENT: Normocephalic. Atraumatic. No conjunctival congestion or icterus. Patient has moist mucous membranes. NECK: Supple. Trachea midline. CHEST/LUNGS: Clear to auscultated bilaterally, breathing nonlabored. No wheezes crackles or rhonchi. HEART/CARDIOVASCULAR: Regular in rate and rhythm. S1 and S2 positive. ABDOMEN: Abdomen is soft, nontender. Patient has normal bowel sounds. SKIN: There is no rash. Warm and dry. NEURO: No focal motor deficit. Follows command. MUSCULOSKELETAL: No joint effusion or tenderness. EXTRIMITY: No edema, no cyanosis or clubbing. PSYCH: Cooperative. Disposition: DC-01 TO HOME OR SELFCARE Time spent for discharge: 32 minutes Core Measure Documentation - Palliative Care Palliative Care/ Comfort Measures: Not Applicable - Core Measures Any of the following diagnoses?: history only Exam - Constitutional Vitals: Temp Pulse Resp BP Pulse Ox 97.4 F L 71 18 117/78 100 02/22/18 12:16 02/22/18 12:16 02/22/18 12:16 02/22/18 12:16 02/22/18 12:16 Plan Activity: advance as tolerated Weight Bearing Status: Non-Weight Bearing Diet: low fat, low salt, diabetic Follow up with: PRIMARY CAREMD [Primary Care Provider] - 7 Days
== END 2018-02-22 15:47 | disposition home or self-care (01) | DRG 391 ==
LOC: ED 15:13 → 4A 16:59
PROVIDERS: ADMIT Internal Medicine; ATTEND Internal Medicine
DX: K21.9 Gastro-esophageal reflux disease without esophagitis (principal); N17.0 Acute kidney failure with tubular necrosis; I24.9 Acute ischemic heart disease, unspecified; E87.1 Hypo-osmolality and hyponatremia; I25.110 Atherosclerotic heart disease of native coronary artery with unstable angina pectoris; I10 Essential (primary) hypertension; E11.65 Type 2 diabetes mellitus with hyperglycemia; E86.0 Dehydration; E87.6 Hypokalemia; R55 Syncope and collapse; J44.9 Chronic obstructive pulmonary disease, unspecified; Z82.49 Family history of ischemic heart disease and other diseases of the circulatory system; Z88.5 Allergy status to narcotic agent; Z95.5 Presence of coronary angioplasty implant and graft; Z79.899 Other long term (current) drug therapy; Z79.82 Long term (current) use of aspirin; Z79.4 Long term (current) use of insulin; Z87.891 Personal history of nicotine dependence; I25.2 Old myocardial infarction; Z90.49 Acquired absence of other specified parts of digestive tract
CPT/HCPCS: 36415; 70450; 71045; 76770; 80048; 81001; 82805; 82962; 83036; 83735; 83880; 84484; 85014; 85018; 85025; 85049; 85520; 85610; 85730; 93005; 93010; 93306; 93880; 96361; 96365; 96366; 96376; A9270-GY; J1644; J1815; J7030; J7040

== ENCOUNTER 2018-03-11 19:42 | Emergency (ER) | payer BC ==
[2018-03-11 21:07] LABS: Basophils % (Auto) 0.4 % (0.0-1.8); Eosinophils # (Auto) 0.2 K/mm3 (0.0-0.4); Eosinophils % (Auto) 3.4 % (0.0-4.3); Hematocrit 41.8 % (35.5-45.6); Hemoglobin 14.6 gm/dl (11.8-15.2); Lymphocytes # (Auto) 1.4 K/mm3 (1.2-5.4); Lymphocytes % (Auto) 21.6 % (13.4-35.0); Mean Corpuscular HGB Conc 35 % (32-34); Mean Corpuscular Hemoglobin 33 pg (28-32); Mean Corpuscular Volume 93 fl (84-94); Monocytes # (Auto) 0.5 K/mm3 (0.0-0.8); Monocytes % (Auto) 7.8 % (0.0-7.3); Platelet Count 172 K/mm3 (140-440); Red Blood Count 4.49 M/mm3 (3.65-5.03); Red Cell Distribution Width 14.5 % (13.2-15.2)
[2018-03-11 21:16] LABS: Calcium 9.4 mg/dL (8.4-10.2)
[2018-03-11] MEDS ORDERED: NACL 0.9% 1000 ML 1,000 ML IV ONE (21:48)
--- NOTE | 2018-03-11 21:53 | Emergency Department Report ---
ED General Adult HPI - General Chief complaint: Weakness Stated complaint: LOW BP Time Seen by Provider: 03/11/18 21:48 Source: patient Mode of arrival: Ambulatory Limitations: No Limitations - History of Present Illness Initial comments: Patient is 62 years old male history of coronary artery disease with multiple stents followed by Dr. Rodriguez. History of hypertension and diabetes. Patient presented to the ER complaining of generalized weakness for the last 2-3 days. Patient went to his primary care office today found to have a blood pressure of 80/40 he was sent from an urgent care receive a liter of fluids blood pressure went up to 100/50. Patient currently denies any chest pain, nausea or vomiting , urinary symptoms. Patient also denied any fever. Severity scale (0 -10): 0 - Related Data Home Medications Medication Instructions Recorded Confirmed Last Taken Clopidogrel Bisulfate [Plavix] 75 mg PO DAILY 05/23/14 02/19/18 05/23/14 10:00 Metoprolol [Lopressor TAB] 25 mg PO BID 05/23/14 02/19/18 05/23/14 10:00 Aspirin [Adult Low Dose Aspirin EC] 81 mg PO DAILY 02/19/18 02/19/18 Unknown Atorvastatin Calcium [Lipitor] 80 mg PO DAILY 02/19/18 02/19/18 Unknown Dulaglutide [Trulicity] 1.5 mg SUB-Q QWEEK 02/19/18 02/19/18 02/14/18 Folic Acid [Folvite] 1 mg PO QDAY 02/19/18 02/19/18 Unknown Insulin Degludec [Tresiba 16 units SUB-Q QDAY 02/19/18 02/19/18 02/19/18 Flextouch U-200] Metoclopramide [Reglan TAB] 10 mg PO TIDWM 02/19/18 02/19/18 Unknown Olmesartan/Amlodipin/Hcthiazid 1 each PO QDAY 02/19/18 02/19/18 Unknown [Tribenzor 20-5-12.5 mg Tablet] Ranolazine [Ranexa] 1,000 mg PO BID 02/19/18 02/19/18 02/19/18 Sitagliptin Phosphate [Januvia] 100 mg PO QDAY 02/19/18 02/19/18 Unknown Allergies Allergy/AdvReac Type Severity Reaction Status Date / Time codeine AdvReac Unknown Verified 02/19/18 17:36 ED Review of Systems ROS: Stated complaint: LOW BP Other details as noted in HPI Comment: All other systems reviewed and negative Constitutional: denies: chills, fever Respiratory: shortness of breath. denies: cough, orthopnea, SOB with exertion, SOB at rest, wheezing Cardiovascular: denies: chest pain, palpitations, dyspnea on exertion, orthopnea Gastrointestinal: denies: abdominal pain, nausea, vomiting, diarrhea, constipation, hematemesis, hematochezia Musculoskeletal: denies: back pain Neurological: denies: headache, weakness, numbness, paresthesias, confusion, abnormal gait ED Past Medical Hx - Past Medical History Previous Medical History?: Yes Hx Hypertension: Yes Hx Heart Attack/AMI: Yes Hx Congestive Heart Failure: Yes Hx Diabetes: Yes Hx Asthma: Yes Hx COPD: Yes - Surgical History Past Surgical History?: Yes Hx Coronary Stent: Yes (x6) Hx Cholecystectomy: Yes - Social History Smoking Status: Never Smoker Substance Use Type: None - Medications Home Medications: Home Medications Medication Instructions Recorded Confirmed Last Taken Type Clopidogrel Bisulfate [Plavix] 75 mg PO DAILY 05/23/14 02/19/18 05/23/14 10:00 History Metoprolol [Lopressor TAB] 25 mg PO BID 05/23/14 02/19/18 05/23/14 10:00 History Aspirin [Adult Low Dose Aspirin EC] 81 mg PO DAILY 02/19/18 02/19/18 Unknown History Atorvastatin Calcium [Lipitor] 80 mg PO DAILY 02/19/18 02/19/18 Unknown History Dulaglutide [Trulicity] 1.5 mg SUB-Q QWEEK 02/19/18 02/19/18 02/14/18 History Folic Acid [Folvite] 1 mg PO QDAY 02/19/18 02/19/18 Unknown History Insulin Degludec [Tresiba 16 units SUB-Q QDAY 02/19/18 02/19/18 02/19/18 History Flextouch U-200] Metoclopramide [Reglan TAB] 10 mg PO TIDWM 02/19/18 02/19/18 Unknown History Olmesartan/Amlodipin/Hcthiazid 1 each PO QDAY 02/19/18 02/19/18 Unknown History [Tribthador 20-5-12.5 mg Tablet] Ranolazine [Ranexa] 1,000 mg PO BID 02/19/18 02/19/18 02/19/18 History Sitagliptin Phosphate [Januvia] 100 mg PO QDAY 02/19/18 02/19/18 Unknown History ED Physical Exam - General Limitations: No Limitations General appearance: alert, in no apparent distress - Head Head exam: Present: atraumatic, normocephalic, normal inspection - ENT ENT exam: Present: normal exam, normal orophraynx, mucous membranes moist - Neck Neck exam: Present: normal inspection, full ROM. Absent: tenderness, meningismus, lymphadenopathy, thyromegaly - Respiratory Respiratory exam: Present: normal lung sounds bilaterally. Absent: respiratory distress, wheezes, rales, rhonchi, stridor, chest wall tenderness, accessory muscle use, decreased breath sounds, prolonged expiratory - Cardiovascular Cardiovascular Exam: Present: regular rate, normal rhythm, normal heart sounds - GI/Abdominal GI/Abdominal exam: Present: soft, normal bowel sounds. Absent: distended, tenderness, guarding, rebound, rigid, organomegaly, mass, bruit, pulsatile mass , hernia - Extremities Exam Extremities exam: Present: normal inspection, full ROM, normal capillary refill - Back Exam Back exam: Present: normal inspection, full ROM. Absent: tenderness, CVA tenderness (R), CVA tenderness (L), muscle spasm, paraspinal tenderness, vertebral tenderness, rash noted - Neurological Exam Neurological exam: Present: alert, oriented X3, CN II-XII intact, normal gait, reflexes normal - Skin Skin exam: Present: warm, intact, normal color ED Course Vital Signs 03/11/18 03/11/18 03/11/18 19:57 21:20 21:21 Temperature 98.0 F Pulse Rate 83 75 79 Respiratory 17 18 17 Rate Blood Pressure 89/64 119/79 Blood Pressure 122/80 [Left] O2 Sat by Pulse 100 99 100 Oximetry 03/11/18 03/11/18 03/11/18 21:27 21:40 22:00 Temperature Pulse Rate 78 Respiratory 18 13 17 Rate Blood Pressure 108/74 101/69 Blood Pressure [Left] O2 Sat by Pulse 99 100 99 Oximetry 03/11/18 03/11/18 03/11/18 22:20 22:40 23:00 Temperature Pulse Rate 78 76 75 Respiratory 14 15 14 Rate Blood Pressure 102/68 103/68 109/71 Blood Pressure [Left] O2 Sat by Pulse 99 Oximetry 03/11/18 03/11/18 03/11/18 23:20 23:25 23:40 Temperature Pulse Rate 75 75 75 Respiratory 16 Rate Blood Pressure 109/72 109/72 98/62 Blood Pressure [Left] O2 Sat by Pulse 99 98 99 Oximetry 03/12/18 03/12/18 03/12/18 00:00 00:20 00:40 Temperature Pulse Rate 76 77 75 Respiratory 11 L 12 21 Rate Blood Pressure 106/63 101/65 100/65 Blood Pressure [Left] O2 Sat by Pulse 99 Oximetry 03/12/18 03/12/18 01:00 01:20 Temperature Pulse Rate 76 Respiratory 21 11 L Rate Blood Pressure 100/65 105/66 Blood Pressure [Left] O2 Sat by Pulse 98 Oximetry ED Medical Decision Making - Lab Data Result diagrams: 03/11/18 20:27 03/11/18 20:27 - EKG Data -: EKG Interpreted by Ga EKG shows normal: sinus rhythm Rate: normal - EKG Data Interpretation: no acute changes - Radiology Data Radiology results: report reviewed Referring Physician: GABY DEVLIN Patient Name: GRICEL CARRION Date of : 1955 Sex: Male Report Date: 2018-03-11 Report Status: [place] [address] XRay Report Signed Patient: GRICEL CARRION MR#: [id number] : 1955 Acct:[id number] Age/Sex: 62 / M ADM Date: 03/11/18 Loc: ED Attending Dr: Ordering Physician: GABY DEVLIN Date of Service: 03/11/18 Procedure(s): XR chest 1V ap Accession Number(s): [id number] cc: GABY DEVLIN Fluoro Time In Minutes: FINAL REPORT PROCEDURE: XR CHEST 1V AP TECHNIQUE: Chest radiograph anteroposterior view. CPT 02869 HISTORY: weakness COMPARISON: 02/19/2018 FINDINGS: Heart: Normal. Mediastinum/Vessels: Normal. Lungs/Pleural space: Lungs are hyperinflated. There are no confluent infiltrates or mass lesions. Pleural spaces are clear.. Bony thorax: No acute osseous abnormality. Life support devices: None. IMPRESSION: COPD No acute pulmonary process. Transcribed By: [facility] [place] Dictated By: ADELINE COLE Electronically Authenticated By: ADELINE COLE Signed Date/Time: 03/11/182241 DD/ 41 TD/TT: 03/11/182241 - Medical Decision Making Patient remained asymptomatic in the ER. 2 sets of cardiac enzyme are negative. Symptom is most likely lung was dehydration. Patient is stable be discharged with normal vital signs blood pressure 110/70. 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 Critical care attestation.: If time is entered above; I have spent that time in minutes in the direct care of this critically ill patient, excluding procedure time. ED Disposition Clinical Impression: Weakness generalized, CAD (coronary artery disease), Diabetes, Hypotension Disposition: - TO HOME OR SELFCARE Is pt being admited?: No Condition: Stable Instructions: Diabetes Mellitus Type 2 in Adults (ED) Referrals: ISAIAS HAWTHORNE MD [Primary Care Provider] - 3-5 Days
--- NOTE | 2018-03-11 22:46 | XRay Report ---
FINAL REPORT PROCEDURE: XR CHEST 1V AP TECHNIQUE: Chest radiograph anteroposterior view. CPT 19619 HISTORY: weakness COMPARISON: 02/19/2018 FINDINGS: Heart: Normal. Mediastinum/Vessels: Normal. Lungs/Pleural space: Lungs are hyperinflated. There are no confluent infiltrates or mass lesions. Pleural spaces are clear.. Bony thorax: No acute osseous abnormality. Life support devices: None. IMPRESSION: COPD No acute pulmonary process.
[2018-03-11 22:53] LABS: Bacteria,Urine 1+ /HPF (Negative); Bilirubin,Urine NEG (Negative); Blood,Urine NEG (Negative); Color,Urine Yellow (Yellow); Mucus,Urine 1+ /HPF; Protein,Urine <15 mg/dL mg/dL (Negative); Urobilinogen,Urine < 2.0 mg/dL (<2.0)
[2018-03-12 02:53] VITALS: BP 110/71
== END 2018-03-12 02:45 | disposition home or self-care (01) ==
LOC: ED 19:42
DX: I25.10 Atherosclerotic heart disease of native coronary artery without angina pectoris (principal); E11.9 Type 2 diabetes mellitus without complications; I95.9 Hypotension, unspecified; I11.0 Hypertensive heart disease with heart failure; I50.9 Heart failure, unspecified; I25.2 Old myocardial infarction; Z95.1 Presence of aortocoronary bypass graft; Z88.6 Allergy status to analgesic agent; Z79.82 Long term (current) use of aspirin
CPT/HCPCS: 36415; 71045; 80053; 81001; 83880; 84484; 85025; 85379; 93005; 93010; 96360; 99284; J7030